=== PATIENT | female | born 1950 | race Caucasian/White ===

== ENCOUNTER 2018-03-09 13:22 | Outpatient (CLI) | payer MEDICARE, OTHER ==
[~2018-03-09] VITALS: Ht 172.7 cm; Wt 57.6 kg
[~2018-03-09 13:22] MED LIST: CIPR500T4 PO; METR500T21 PO; ONDA4TAB11 PO
[2018-03-09 13:32] VITALS: BP 120/80
[2018-03-09] MEDS ORDERED: LANS30CA PO (13:35)
[2018-03-16] MEDS ORDERED: HYDR-34 PO (12:15)
== END 2018-03-09 13:45 | disposition home or self-care (01) ==
LOC: PREOP 13:22
PROVIDERS: ATTEND Surgery
DX: Z01.818 Encounter for other preprocedural examination (principal); Z11.2 Encounter for screening for other bacterial diseases; K80.20 Calculus of gallbladder without cholecystitis without obstruction; R10.13 Epigastric pain
CPT/HCPCS: 87081

== ENCOUNTER 2018-03-16 08:07 | Day surgery (SDC) | payer MEDICARE, OTHER ==
[~2018-03-16] VITALS: Ht 172.7 cm; Wt 57.6 kg
[~2018-03-16 08:07] MED LIST changes: +LANS30CA PO
--- OUTSIDE RECORDS SUMMARY | 2018-03-16 08:11 | XMS REPORT | Continuity of Care Document ---
Author Author [facility] Organization [facility] Address Unknown Phone Unavailable Allergies Active Description Code Type Severity Reaction Onset Reported/Identified Relationship to Patient Clinical Status Yes No Known Drug Allergies [id number] Drug Allergy Unknown N/A 02/07/2018 Medications There is no data. 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 Results Test Result Range Complete blood count (CBC) with automated white blood cell (WBC) differential - 02/07/18 17:34 Blood leukocytes automated count (number/volume) 13.9 10*3/uL 4.3-11.0 Blood erythrocytes automated count (number/volume) 5.21 10*6/uL 4.35-5.85 Venous blood hemoglobin measurement (mass/volume) 14.3 g/dL 11.5-16.0 Blood hematocrit (volume fraction) 43 % 35-52 Automated erythrocyte mean corpuscular volume 83 [foz_us] 80-99 Automated erythrocyte mean corpuscular hemoglobin (mass per erythrocyte) 27 pg 25-34 Automated erythrocyte mean corpuscular hemoglobin concentration measurement ( mass/volume) 33 g/dL 32-36 Automated erythrocyte distribution width ratio 14.0 % 10.0-14.5 Automated blood platelet count (count/volume) 292 10*3/uL 130-400 Automated blood platelet mean volume measurement 9.8 [foz_us] 7.4-10.4 Automated blood neutrophils/100 leukocytes 90 % 42-75 Automated blood lymphocytes/100 leukocytes 5 % 12-44 Blood monocytes/100 leukocytes 5 % 0-12 Automated blood eosinophils/100 leukocytes 0 % 0-10 Automated blood basophils/100 leukocytes 0 % 0-10 Blood neutrophils automated count (number/volume) 12.5 10*3 1.8-7.8 Blood lymphocytes automated count (number/volume) 0.6 10*3 1.0-4.0 Blood monocytes automated count (number/volume) 0.7 10*3 0.0-1.0 Automated eosinophil count 0.0 10*3/uL 0.0-0.3 Automated blood basophil count (count/volume) 0.0 10*3/uL 0.0-0.1 Comprehensive metabolic panel - 02/07/18 17:34 Serum or plasma sodium measurement (moles/volume) 138 mmol/L 135-145 Serum or plasma potassium measurement (moles/volume) 4.4 mmol/L 3.6-5.0 Serum or plasma chloride measurement (moles/volume) 106 mmol/L 98-107 Carbon dioxide 25 mmol/L 21-32 Serum or plasma anion gap determination (moles/volume) 7 mmol/L 5-14 Serum or plasma urea nitrogen measurement (mass/volume) 11 mg/dL 7-18 Serum or plasma creatinine measurement (mass/volume) 1.00 mg/dL 0.60-1.30 Serum or plasma urea nitrogen/creatinine mass ratio 11 NRG Serum or plasma creatinine measurement with calculation of estimated glomerular filtration rate 55 NRG Serum or plasma glucose measurement (mass/volume) 114 mg/dL 70-105 Serum or plasma calcium measurement (mass/volume) 9.6 mg/dL 8.5-10.1 Serum or plasma total bilirubin measurement (mass/volume) 0.5 mg/dL 0.1-1.0 Serum or plasma alkaline phosphatase measurement (enzymatic activity/volume) 79 U/L 40-136 Serum or plasma aspartate aminotransferase measurement (enzymatic activity/ volume) 19 U/L 5-34 Serum or plasma alanine aminotransferase measurement (enzymatic activity/volume ) 13 U/L 0-55 Serum or plasma protein measurement (mass/volume) 7.4 g/dL 6.4-8.2 Serum or plasma albumin measurement (mass/volume) 4.3 g/dL 3.2-4.5 Blood manual differential performed detection - 02/07/18 17:34 Blood monocytes/100 leukocytes 2 % NRG Manual blood segmented neutrophils/100 leukocytes 89 % NRG Blood band neutrophils/100 leukocytes 0 % NRG Manual blood lymphocytes/100 leukocytes 9 % NRG Manual eosinophils/100 leukocytes in nose 0 % NRG Manual blood basophils/100 leukocytes 0 % NRG Blood erythrocyte morphology finding identification NORMAL NRG Complete urinalysis with reflex to culture - 02/07/18 18:35 Urine color determination YELLOW NRG Urine clarity determination CLEAR NRG Urine pH measurement by test strip 5 5-9 Specific gravity of urine by test strip 1.020 1.016- 1.022 Urine protein assay by test strip, semi-quantitative 1+ NEGATIVE Urine glucose detection by automated test strip NEGATIVE NEGATIVE Erythrocytes detection in urine sediment by light microscopy 1+ NEGATIVE Urine ketones detection by automated test strip NEGATIVE NEGATIVE Urine nitrite detection by test strip NEGATIVE NEGATIVE Urine total bilirubin detection by test strip NEGATIVE NEGATIVE Urine urobilinogen measurement by automated test strip (mass/volume) NORMAL NORMAL Urine leukocyte esterase detection by dipstick 1+ NEGATIVE Automated urine sediment erythrocyte count by microscopy (number/high power field) [HPF] NRG Automated urine sediment leukocyte count by microscopy (number/high power field ) [HPF] NRG Bacteria detection in urine sediment by light microscopy FEW NRG Crystals detection in urine sediment by light microscopy NONE NRG Casts detection in urine sediment by light microscopy NONE NRG Mucus detection in urine sediment by light microscopy SMALL NRG Complete urinalysis with reflex to culture YES NRG Bacterial urine culture - 02/07/18 18:35 Bacterial urine culture NG NRG Methicillin resistant Staphylococcus aureus (MRSA) screening culture - 13:41 Methicillin resistant Staphylococcus aureus (MRSA) screening culture NEG NRG Encounters ACCT No. Visit Date/Time Discharge Status Pt. Type Provider Facility Loc./Unit Complaint [id number] 02/07/2018 14:44:00 02/07/2018 20:03:00 DIS Emergency POLO MARR, [place] [facility] ER UNABLE TO BM [id number] 12/11/2013 13:35:00 12/11/2013 23:59:59 CLS Outpatient ANDERSON GUZMAN [facility] RAD ABN MAMMO [id number] 11/26/2013 09:48:00 11/26/2013 23:59:59 CLS Outpatient SVETLANA BLACKMAN MD [facility] RAD SCREENING [id number] 03/16/2018 12:15:00 PEN Preadmit CHUN MARR, BEN [facility] SDC GALLSTONES, DYSPHAGIA [id number] 03/10/2018 15:36:00 Document Registration [id number] 12/09/2014 10:07:00 Document Registration
[2018-03-16] MEDS ORDERED: ceFAZolin 1 GM/NS 50 ML IVPB IV ONE ×2 (08:15)
[2018-03-16] MEDS ORDERED: LACTATED RINGERS 1,000 ML IV PRN (08:22)
[2018-03-16 08:30] VITALS: BP 155/84
[2018-03-16] MEDS ORDERED: ceFAZolin INJECTION 1,000 MG in NS (IVPB) 50 ML IV ONE (08:30)
--- NOTE | 2018-03-16 09:07 | Progress Note-Pre Operative ---
Pre-Operative Progress Note H&P Reviewed The H&P was reviewed, patient examined and no changes noted. Date Seen by Provider: March 16, 2018 Time Seen by Provider: 09:00 Date H&P Reviewed: March 16, 2018 Time H&P Reviewed: 09:00 Pre-Operative Diagnosis: recurrent dysphagia, symptomatic cholelithiasis BEN MCCOLLUM MD March 16, 2018 9:07 am
[2018-03-16] MEDS ORDERED: ACETAMINOPHEN 325 MG TABLET/CAPLET (TYLENOL) PO PRN (09:15)
[2018-03-16] MEDS ORDERED: morphine INJ 10 MG/ML 1ML (SYR OR VIAL) IVP PRN (09:15)
[2018-03-16] MEDS ORDERED: ONDANSETRON 4 MG/2 ML (SDV) Z0FRAN IVP PRN ×2 (09:15→12:30)
[2018-03-16] MEDS ORDERED: HYDROcodone/APAP 5 MG/325 MG (LORTAB) TAB PO ONE (09:15)
[2018-03-16] MEDS ORDERED: BUP/EPI 0.5% 1:200,000 (SENSORCAINE) 30 ML VIAL ONE (10:19)
[2018-03-16] MEDS ORDERED: SEVOFLURANE (ULTANE) 15 ML INHAL SOLN ONE ×4 (10:23→12:05)
[2018-03-16] MEDS ORDERED: LACTATED RINGERS 1,000 ML IV ONE (10:23)
[2018-03-16] MEDS ORDERED: ROCURONIUM 10 MG/ML 5 ML SYRINGE IV ONE (10:23)
[2018-03-16] MEDS ORDERED: proPOfol 200 MG/20 ML (DIPRIVAN) VIAL IV ONE (10:23)
[2018-03-16] MEDS ORDERED: LIDOCAINE PF 2% 5 ML (XYLOCAINE) VIAL ONE (10:23)
[2018-03-16] MEDS ORDERED: fentaNYL INJECTION 100 MCG/2 ML AMP ONE (10:24)
[2018-03-16] MEDS ORDERED: MIDAZOLAM 2 MG/2 ML (VERSED) VIAL ONE (10:24)
[2018-03-16] MEDS ORDERED: NEOSTIGMINE 1 MG/ML 5 ML SYRINGE ONE (11:47)
[2018-03-16] MEDS ORDERED: GLYCOPYRROLATE 0.2 MG/ML (ROBINUL) 2 ML VIAL ONE (11:47)
--- NOTE | 2018-03-16 12:13 | Progress Note-Post Operative ---
Post-Operative Progess Note Surgeon (s)/Pharmacy General Manager (s) Surgeon BEN MCCOLLUM MD Pharmacy General Manager: ange metcalf [employer] TECHNICIAN Pre-Operative Diagnosis recurrent dysphagia, symptomatic cholelithiasis Post-Operative Diagnosis multiple large gallstones, distal esophageal stricture, small HH(2cm), mild-mod gastritis. Procedure & Operative Findings Date of Procedure 03/16/18 Procedure Performed/Findings laparoscopic cholecystectomy. EGD with bx and balloon dilatation. Anesthesia Type GET Estimated Blood Loss Estimated blood loss (mL): minimal Specimens/Packing Specimens Removed gallbladder, GE jxn, antrum BEN MCCOLLUM MD March 16, 2018 12:13 pm
[2018-03-16] MEDS ORDERED: HYDR-34 PO (12:15)
--- NOTE | 2018-03-16 12:17 | Discharge Inst-Surgical ---
D/C Lap Instructions-CHUN New, Converted, or Re-Newed RX: RX on Chart Follow Up Appt in 2 weeks Activity as tolerated No driving for 24 hours No driving while on pain medications Incentive Spirometry use every 2 hours while awake Regular Diet Symptoms to Report: Fever over 101 degree F, Nausea/Vomiting Infection Signs and Symptoms to report: Increased redness, Foul odor of wound, Increased drainage Bathing instructions: May shower Operative Area Clean/Dry; Keep incision clean/dry If any problems/questions: Contact your physician or go to Emergency Room BEN MCCOLLUM MD March 16, 2018 12:17 pm
--- NOTE | 2018-03-16 12:29 | Anesthesia-General Post-Op ---
General Patient Condition Mental Status/LOC: Same as Preop Cardiovascular: Satisfactory Nausea/Vomiting: Absent Respiratory: Satisfactory Pain: Controlled Complications: Absent Post Op Complications Complications None Follow Up Care/Instructions Patient Instructions None needed. Anesthesia/Patient Condition Patient Condition Patient is doing well, no complaints, stable vital signs, no apparent adverse anesthesia problems. No complications reported per nursing. MICHELINE STEWARD CRNA March 16, 2018 12:29
[2018-03-16] MEDS ORDERED: MEPERIDINE (DEMEROL) INJ 50 MG/ML IVP PRN (12:30)
[2018-03-16] MEDS ORDERED: fentaNYL INJECTION 100 MCG/2 ML AMP IVP PRN (12:30)
[2018-03-16 13:10] VITALS: BP 121/57
[2018-03-16 13:40] VITALS: BP 117/64
[2018-03-16 14:10] VITALS: BP 111/58
[2018-03-16 14:25] VITALS: BP 111/58
--- NOTE | 2018-03-16 17:38 | OPERATIVE REPORT ---
DATE OF SERVICE: 03/16/2018 ATTENDING PRIMARY CARE PHYSICIAN: Dr. Cox. PREOPERATIVE DIAGNOSES: Chronic calculous cholecystitis, recurrent symptomatic dysphagia and history of esophageal stricture. POSTOPERATIVE DIAGNOSES: Multiple large gallstones, dilated gallbladder, distal esophageal stricture, reflux esophagitis class B, small hiatal hernia approximately 2 cm in size, mild to moderate gastritis. PROCEDURES: Laparoscopic cholecystectomy, EGD with biopsy and balloon dilatation. SURGEON: Ben Mccollum MD PROGRAM THERAPIST: Paul Simon APRN ANESTHESIA: General endotracheal. ESTIMATED BLOOD LOSS: Minimal. FINDINGS: Multiple large gallstones with mild to moderate gallbladder wall thickening, reflux esophagitis class C, distal esophageal stricture, small hiatal hernia 2 cm in size, mild to moderate gastritis. DISPOSITION: The patient tolerated the procedure well. INDICATIONS: The patient is a 67-year-old female, who has had a number of gastrointestinal issues in the past. She had reported episodes of diarrhea and constipation for many years in the past. She did develop pain in the left lower abdominal quadrant. She was found to have a mild sigmoid diverticulitis and was placed on antibiotics and this resolved on its own. Since that time, she has been trying to incorporate healthy diets with one in high in fiber and states at this time, her stools are softer in consistency. She also has had a history of dysphagia and has undergone 3 balloon dilatations of a distal esophageal stricture in the past. Her last one was approximately 7 years ago. She has had recurrent dysphagia with solid foods. She also was found to have gallstones. She reports that she has had the development and worsening of pain in the right upper abdominal quadrant as well as a fullness sensation with nausea; however, no vomiting usually after eating meals. DESCRIPTION OF PROCEDURE: The patient was brought to the operating room, laid supine on the table. After adequate IV pain and sedative medications and general endotracheal intubation, the abdomen was prepped and draped in standard surgical fashion. A 0.5% Marcaine with epinephrine was then used to anesthetize the overlying skin in the left upper abdominal quadrant and a small transverse skin incision made using a 15 blade. An 0 silk suture was applied to the medial aspect of the incision for retraction and a Veress needle inserted with a low opening pressure of 0 mmHg and the abdomen was then insufflated to 15 mmHg pressure. The Veress needle removed and a 5 mm Xcel trocar placed followed by a 5 mm 45 degree angle laparoscope visualizing the peritoneal cavity. A 4-quadrant abdominal exploration was performed. There were pelvic omental adhesions from the abdominal wall from a previous lower laparotomy incision. There was a dilated gallbladder with mild to moderate gallbladder wall thickening. The remainder of the stomach, small bowel and liver appeared normal. Under direct visualization, a supraumbilical 10 mm port was placed at the skin and peritoneal lining were anesthetized using 0.5% Marcaine with epinephrine and a transverse skin incision made using 15 blade. In a similar manner, a right upper abdominal quadrant 5 mm port was placed. The patient was then placed in reverse Trendelenburg position as well as plane right side up, left side down. The fundus of the gallbladder was then retracted anteriorly and superiorly. The hepatoduodenal ligament was then opened using electrocautery and hook instrument as well as blunt dissection. The entire critical view of safety was identified including the triangle of Calot as well as the cystic duct and artery as the only two structures going into the gallbladder as well as the cystic plate behind the proximal gallbladder. A timeout was then taken. The cystic duct and artery were then clipped proximally, distally and cut with EndoShears. The gallbladder was then dissected off the liver bed using electrocautery on the hook instrument with visualization of good hemostasis as well as no leaking ducts of Luschka. The gallbladder was removed through the 10 mm port site using an EndoCatch bag. The abdomen was then desufflated and the remaining ports removed. The fascia and peritoneum to the 10 mm port site, which had to be widened to accommodate the gallstones was then closed using 0 Vicryl running suture. All skin incisions were then closed using 4-0 Monocryl running subcuticular sutures. Wounds were then cleaned and covered with Dermabond. The patient tolerated this portion of the procedure well. We will start IV and oral pain medication as well as a clear liquid diet. Once she is tolerating clears, has good pain control with oral pain medications, ambulating well, we will discharge her home. She will be instructed to do no heavy lifting or exertion for the next two weeks. Under the same anesthesia, we then proceeded with the EGD portion of the procedure. The endoscope was placed in the mouth, visualizing the pharynx and hypopharyngeal region. The endoscope was then gently intubated. The esophageal opening and esophagus insufflated. The endoscope was then advanced to the first, second and third portion of the esophagus at the level of the GE junction, a reflux esophagitis class C identified with a distal esophageal stricture identified. Biopsies were taken with forceps with visualization of good hemostasis. The endoscope was then advanced through the stricture and the endoscope retroflexed, visualizing a small hiatal hernia approximately 2 cm in size as well as the stricture identified as well. There was a mild to moderate gastritis. There were no formal ulcers, polyps or any neoplasms identified. A biopsy was taken of the stomach antrum for H. pylori with forceps with visualization of good hemostasis. The endoscope was then advanced to the pylorus and the first and second portion of the duodenum, which appeared normal with no distal obstructions. We then proceeded with the balloon dilatation of distal esophageal stricture. A CRE fixed guidewire balloon was placed in the stomach and pulled back to the area of the stricture. The balloon was then insufflated to 3 atmospheres of pressure 18 mm in diameter with mild resistance. We then proceeded to 4.5 atmospheres of pressure or 19 mm with again mild resistance. We then proceeded to 6 atmospheres of pressure or 20 mm in diameter with mild to moderate resistance and left this in place for approximately 60 seconds. The balloon was then desufflated and removed. There were no mucosal tears identified as well as good hemostasis. Endoscope was then slowly withdrawn while taking a second look and suctioning of residual air with no additional findings. The patient tolerated this portion of the procedure well. We will recommend continued medical management with the necessary lifestyle and diet accommodation including small and more frequent meals, avoidance of eating at night as well as head elevation while lying supine. She also needs to avoid caffeinated beverages, spicy, greasy and acidic foods. Job ID: [id number] DocumentID: [id number] Dictated Date: 03/16/2018 12:29:54 Lpn Private Duty Date: 03/16/2018 17:37:36 Dictated By: BEN MCCOLLUM MD
== END 2018-03-16 14:25 | disposition home or self-care (01) ==
LOC: SDC 08:07
PROVIDERS: ATTEND Surgery
DX: K80.10 Calculus of gallbladder with chronic cholecystitis without obstruction (principal); K22.2 Esophageal obstruction; K21.0 Gastro-esophageal reflux disease with esophagitis; K44.9 Diaphragmatic hernia without obstruction or gangrene; K29.70 Gastritis, unspecified, without bleeding
CPT/HCPCS: 88304; 88305; 94664

== ENCOUNTER 2021-02-24 05:28 | Outpatient (RCR) | payer MEDICARE, OTHER ==
[~2021-02-24] VITALS: Ht 170.2 cm; Wt 64.9 kg
[~2021-02-24 05:28] MED LIST changes: -CIPR500T4 PO; +CIPR500T5 PO; +HYDR-34 PO; +METR-145 PO; -METR500T21 PO; +PANT40TA52 PO
== END 2021-02-24 09:41 | disposition home or self-care (01) ==
LOC: PREOP 05:28
PROVIDERS: ATTEND Surgery
DX: Z01.812 Encounter for preprocedural laboratory examination (principal); Z12.11 Encounter for screening for malignant neoplasm of colon; R13.10 Dysphagia, unspecified; Z20.822 Contact with and (suspected) exposure to COVID-19
CPT/HCPCS: 87635

== ENCOUNTER 2021-02-25 12:43 | Day surgery (SDC) | payer MEDICARE, OTHER ==
[~2021-02-25] VITALS: Ht 170.2 cm; Wt 64.9 kg
[2021-02-25] VITALS (16 sets, daily range): BP systolic 90–162; BP diastolic 54–99
[~2021-02-25 12:43] MED LIST changes: +NS IV 500 ML 500 ML ONE
[2021-02-25] MEDS ORDERED: LIDOCAINE JELLY 2% 6 ML SYRINGE MM PRN (13:00)
[2021-02-25] MEDS ORDERED: NS IV 500 ML 500 ML IV PRN (13:00)
[2021-02-25] MEDS ORDERED: fentaNYL INJ 100 MCG/2 ML AMP IVP ONE (13:00)
[2021-02-25] MEDS ORDERED: HURRICAINE EXT TUBE (BENZOCAINE) XX PRN (13:00)
[2021-02-25] MEDS ORDERED: MIDAZOLAM 5 MG/5 ML (VERSED) VIAL IV ONE (13:00)
--- NOTE | 2021-02-25 13:26 | Conscious Sedation/ASA ---
Conscious Sedation Pre-Proced Time 13:00 ASA Score 2 For ASA 3 and 4: Consider anesthesia and medical clearance. Also, for patients with a history of failed moderate sedation consider anesthesia. Airway Lungs Heart ASA score ASA 1: a normal healthy patient ASA 2: a patient with a mild systemic disease (mid diabetes, controlled hypertension, obesity ASA 3: a patient with a severe systemic disease that limits activity (angina, COPD, prior Myocardial infarction) ASA 4: a patient with an incapacitating disease that is a constant threat to life (CHF, renal failure) ASA 5: a moribund patient not expected to survive 24 hrs. (ruptured aneurysm) ASA 6: a declared brain- patient whose organs are being harvested. For emergent operations, add the letter E after the classification Mallampati Classification Grade 2 Sedation Plan Analgesia, Amnesia, Plan communicated to team members, Discussed options with patient/fam, Discussed risks with patient/fam The patient is an appropriate candidate to undergo the planned procedure, sedation, and anesthesia. The patient immediately re-assessed prior to indication. BEN MCCOLLUM MD February 25, 2021 13:26
--- NOTE | 2021-02-25 13:26 | Progress Note-Pre Operative ---
Pre-Operative Progress Note H&P Reviewed The H&P was reviewed, patient examined and no changes noted. Date Seen by Provider: February 25, 2021 Time Seen by Provider: 13:00 Date H&P Reviewed: February 25, 2021 Time H&P Reviewed: 13:00 Pre-Operative Diagnosis: dysphagia, GERD, screening BEN MCCOLLUM MD February 25, 2021 13:26
--- NOTE | 2021-02-25 13:28 | Discharge Inst-Surgical ---
D/C Lap Instructions-CHUN Follow Up Activity as tolerated High Fiber Diet 25g or more per day Avoid Alcohol, Caffeine, Spicy [place] and Acid foods. Drink 64 fluid oz or more of fluids per day. Symptoms to Report: Fever over 101 degree F, Nausea/Vomiting If any problems/questions: Contact your physician or go to Emergency Room BEN MCCOLLUM MD February 25, 2021 13:28
[2021-02-25] MEDS ORDERED: HYDROcodone/APAP 5 MG/325 MG (LORTAB) TAB PO PRN (13:30)
[2021-02-25] MEDS ORDERED: ACETAMINOPHEN 325 MG TABLET PO PRN (13:30)
[2021-02-25] MEDS ORDERED: morphine INJ 10 MG/ML 1ML (SYR OR VIAL) IVP PRN ×2 (13:30)
[2021-02-25] MEDS ORDERED: ONDANSETRON 4 MG/2 ML (SDV) Z0FRAN IVP PRN (13:30)
[2021-02-25] MEDS ORDERED: fentaNYL INJ 100 MCG/2 ML AMP ONE ×2 (14:12→14:33)
[2021-02-25] MEDS ORDERED: MIDAZOLAM 5 MG/5 ML (VERSED) VIAL ONE ×4 (14:12→14:33)
[2021-02-25] MEDS ORDERED: LIDOCAINE JELLY 2% 6 ML SYRINGE ONE (14:12)
[2021-02-25] MEDS ORDERED: HURRICAINE EXT TUBE (BENZOCAINE) ONE (14:13)
--- NOTE | 2021-02-25 16:02 | Progress Note-Post Operative ---
Post-Operative Progess Note Surgeon (s)/Drainage Inspector (s) Surgeon BEN MCCOLLUM MD Drainage Inspector: none Pre-Operative Diagnosis dysphagia, GERD, screening Post-Operative Diagnosis reflux esophagitis(stage 2-3), distal esophageal stricture, small-mod HH(2.5cm), mod gastritis. mild chronic stage 1 ext and int hemorrhoids, mild sigmoid diverticulosis. Procedure & Operative Findings Date of Procedure 02/25/21 Procedure Performed/Findings EGD with bx and balloon dilatation. colonoscopy. Anesthesia Type cs Estimated Blood Loss Estimated blood loss (mL): minimal Specimens/Packing Specimens Removed ge jxn, antrum BEN MCCOLLUM MD February 25, 2021 16:02
--- NOTE | 2021-02-25 22:49 | OPERATIVE REPORT ---
DATE OF SERVICE: 02/25/2021 ATTENDING PRIMARY CARE PHYSICIAN: Amanda Cox MD PREOPERATIVE DIAGNOSES: Dysphagia, gastroesophageal reflux disease, history of colon polyp. POSTOPERATIVE DIAGNOSES: Reflux esophagitis stage II, distal esophageal stricture, small to moderate size hiatal hernia approximately 3 cm in size, moderate gastritis. Chronic stage I external and internal hemorrhoids, mild sigmoid diverticulosis. PROCEDURE: EGD with biopsy and balloon dilatation, and colonoscopy. SURGEON: Ben Mccollum MD. ANESTHESIA: Conscious sedation. ESTIMATED BLOOD LOSS: Minimal. FINDINGS: Reflux esophagitis stage II, distal esophageal stricture, small to moderate size hiatal hernia approximately 3 cm in size, moderate gastritis. Chronic stage I external and internal hemorrhoids, mild sigmoid diverticulosis. DISPOSITION: The patient tolerated the procedure well. INDICATIONS: The patient is a 70-year-old female known to us. She has had multiple gastrointestinal issues in the past and she has undergone previous EGD as well as balloon dilatations for esophageal strictures. She has had reoccurrence of dysphagia for the past six months and she is also in need of a screening colonoscopy, her last one was 12 years ago and she does have a history of polyps, which were biopsied and found to be a benign. She does not report any red blood per rectum nor any dark tarry stools. She also does not report any family history of colon cancer. DESCRIPTION OF PROCEDURE: The patient was brought to the endoscopy suite, laid in the left lateral decubitus position. After adequate IV pain and sedative medications and conscious sedation anesthesia, the mouthpiece was applied. The endoscope was placed in the mouth, visualizing the pharynx and hypopharyngeal region. Vocal cords, epiglottis and vallecula identified and appeared to be normal. The endoscope was then gently abated, esophageal opening and esophagus insufflated. The endoscope was then advanced to the first, second and third portion of the esophagus. At the level of the GE junction, reflux esophagitis between stage II and III identified with a distal esophageal stricture also identified. The GE junction was also intrathoracic consistent with a hiatal hernia. The endoscope was then advanced in the stomach and endoscope retroflexed, visualizing a moderate size hiatal hernia approximately 3 cm in size. There was a moderate gastritis more towards the stomach antrum. No formal ulcerations, polyps, or any neoplasms. Pylorus and duodenum appeared normal with no distal obstructions. We then proceeded with balloon dilatation of the stricture and the balloon was placed in the stomach and pulled back to the area of the stricture. We first proceeded to 2 atmospheres of pressure with mild resistance. We then slowly went to 3, then 4 atmospheres of pressure where there was a significant amount of resistance and we left this in place for approximately 60 seconds. The luminal diameter was approximately 19 mm. The balloon was then desufflated and removed with visualization of good hemostasis as well as no mucosal tears. The endoscope was slowly withdrawn while taking a second look and suctioning of residual air with no additional findings. We then proceeded with the colonoscopy portion of the procedure. Digital rectal examination was performed. Mild chronic stage I external and internal hemorrhoids were identified, which were not actively edematous nor inflamed and no bleeding. Normal sphincter tone was felt and there were no palpable masses. The endoscope was then intubated and anus and rectum gently insufflated. The endoscope was then advanced to the valves of [place] of the rectum with no polyps or any neoplasms identified. Through the sigmoid colon, mild sigmoid diverticulosis identified. The endoscope was then advanced to the remainder of the descending, transverse and ascending colon to the cecum. These segments were normal. There were no polyps or any neoplasms identified throughout the colon or rectum. Endoscope was then slowly withdrawn while taking a second look and suctioning of residual air with no additional findings. The patient tolerated the procedure well. We will recommend the necessary lifestyle and diet accommodation including small and more frequent meals, avoidance of eating at night as well as head elevation while lying supine. We will also recommend that she continue to take Protonix daily as well as Carafate on a p.r.n. basis. In approximately 6 to 8 weeks, we will recommend a followup balloon dilatation in hopes of achieving a dilatation to 20 mm. We will also recommend an incorporation of high fiber diet with fiber supplement, which should equate or exceed 25 mg daily as well as significant amounts of water to promote soft stools on a daily basis. If she is asymptomatic, she does not need another colonoscopy for another 10 years. Job ID: [id number] DocumentID: [id number] Dictated Date: 02/25/2021 15:38:56 Leasing Coordinator Date: 02/25/2021 22:47:58 Dictated By: BEN MCCOLLUM MD
== END 2021-02-25 16:15 | disposition home or self-care (01) ==
LOC: ENDO 12:43
PROVIDERS: ATTEND Surgery
DX: Z12.11 Encounter for screening for malignant neoplasm of colon (principal); K21.00 Gastro-esophageal reflux disease with esophagitis, without bleeding; K29.50 Unspecified chronic gastritis without bleeding; K22.2 Esophageal obstruction; K44.9 Diaphragmatic hernia without obstruction or gangrene; K29.70 Gastritis, unspecified, without bleeding; K64.4 Residual hemorrhoidal skin tags; K64.0 First degree hemorrhoids; K57.30 Diverticulosis of large intestine without perforation or abscess without bleeding; Z86.010 Personal history of colon polyps; Z79.899 Other long term (current) drug therapy; Z90.49 Acquired absence of other specified parts of digestive tract; Z90.89 Acquired absence of other organs; Z82.49 Family history of ischemic heart disease and other diseases of the circulatory system
CPT/HCPCS: 43239; 43249; G0105

== ENCOUNTER 2021-04-27 05:32 | Outpatient (RCR) | payer MEDICARE, OTHER ==
[~2021-04-27] VITALS: Ht 170.2 cm; Wt 64.9 kg
[~2021-04-27 05:32] MED LIST changes: +CARB10DR5 OP; -NS IV 500 ML 500 ML ONE; +PRED5DRO24 OP
== END 2021-04-27 11:09 | disposition home or self-care (01) ==
LOC: PREOP 05:32
PROVIDERS: ATTEND Surgery
DX: Z01.812 Encounter for preprocedural laboratory examination (principal); R13.10 Dysphagia, unspecified; Z20.822 Contact with and (suspected) exposure to COVID-19
CPT/HCPCS: 87635

== ENCOUNTER 2021-04-29 11:22 | Day surgery (SDC) | payer MEDICARE, OTHER ==
[~2021-04-29] VITALS: Ht 170.2 cm; Wt 64.9 kg
[2021-04-29] VITALS (12 sets, daily range): BP systolic 127–175; BP diastolic 60–95
[2021-04-29] MEDS ORDERED: NS IV 500 ML 500 ML ONE (11:29)
--- NOTE | 2021-04-29 11:56 | Conscious Sedation/ASA ---
Conscious Sedation Pre-Proced Time 11:30 ASA Score 2 For ASA 3 and 4: Consider anesthesia and medical clearance. Also, for patients with a history of failed moderate sedation consider anesthesia. Airway Lungs Heart ASA score ASA 1: a normal healthy patient ASA 2: a patient with a mild systemic disease (mid diabetes, controlled hypertension, obesity ASA 3: a patient with a severe systemic disease that limits activity (angina, COPD, prior Myocardial infarction) ASA 4: a patient with an incapacitating disease that is a constant threat to life (CHF, renal failure) ASA 5: a moribund patient not expected to survive 24 hrs. (ruptured aneurysm) ASA 6: a declared brain- patient whose organs are being harvested. For emergent operations, add the letter E after the classification Mallampati Classification Grade 2 Sedation Plan Analgesia, Amnesia, Plan communicated to team members, Discussed options with patient/fam, Discussed risks with patient/fam The patient is an appropriate candidate to undergo the planned procedure, sedation, and anesthesia. The patient immediately re-assessed prior to indication. BEN MCCOLLUM MD Apr 29, 2021 11:56
--- NOTE | 2021-04-29 11:57 | Progress Note-Pre Operative ---
Pre-Operative Progress Note H&P Reviewed The H&P was reviewed, patient examined and no changes noted. Date Seen by Provider: Apr 29, 2021 Time Seen by Provider: 11:30 Date H&P Reviewed: Apr 29, 2021 Time H&P Reviewed: 11:30 Pre-Operative Diagnosis: GERD, dysphagia BEN MCCOLLUM MD Apr 29, 2021 11:57
--- NOTE | 2021-04-29 11:58 | Discharge Inst-Surgical ---
D/C Lap Instructions-CHUN Follow Up Activity as tolerated High Fiber Diet 25g or more per day Avoid Alcohol, Caffeine, Spicy [place] and Acid foods. Drink 64 fluid oz or more of fluids per day. Symptoms to Report: Fever over 101 degree F, Nausea/Vomiting If any problems/questions: Contact your physician or go to Emergency Room BEN MCCOLLUM MD Apr 29, 2021 11:58
[2021-04-29] MEDS ORDERED: fentaNYL INJ 100 MCG/2 ML AMP IVP ONE (12:00)
[2021-04-29] MEDS ORDERED: LIDOCAINE JELLY 2% 6 ML SYRINGE MM PRN (12:00)
[2021-04-29] MEDS ORDERED: HYDROcodone/APAP 5 MG/325 MG (LORTAB) TAB PO PRN (12:00)
[2021-04-29] MEDS ORDERED: MIDAZOLAM 5 MG/5 ML (VERSED) VIAL IV ONE (12:00)
[2021-04-29] MEDS ORDERED: ACETAMINOPHEN 325 MG TABLET PO PRN (12:00)
[2021-04-29] MEDS ORDERED: ONDANSETRON 4 MG/2 ML (SDV) Z0FRAN IVP PRN (12:00)
[2021-04-29] MEDS ORDERED: morphine INJ 10 MG/ML 1ML (SYR OR VIAL) IVP PRN ×2 (12:00)
[2021-04-29] MEDS ORDERED: NS IV 500 ML 500 ML IV PRN (12:00)
[2021-04-29] MEDS ORDERED: HURRICAINE EXT TUBE (BENZOCAINE) XX PRN (12:00)
--- NOTE | 2021-04-29 13:22 | Progress Note-Post Operative ---
Post-Operative Progess Note Surgeon (s)/Machine Stuffer (s) Surgeon BEN MCCOLLUM MD Machine Stuffer: none Pre-Operative Diagnosis GERD, dysphagia Post-Operative Diagnosis reflux esophagitis(stage 2-3), distal esophageal stricture, small-mod HH(3cm), mild-mod gastritis. Procedure & Operative Findings Date of Procedure 04/29/21 Procedure Performed/Findings EGD with bx and balloon dilatation. Anesthesia Type cs Estimated Blood Loss Estimated blood loss (mL): minimal Specimens/Packing Specimens Removed ge jxn, antrum BEN MCCOLLUM MD Apr 29, 2021 13:22
--- NOTE | 2021-04-29 19:12 | OPERATIVE REPORT ---
DATE OF SERVICE: 04/29/2021 ATTENDING PRIMARY CARE PHYSICIAN: Amanda Cox MD PREOPERATIVE DIAGNOSES: Gastroesophageal reflux disease, dysphagia. POSTOPERATIVE DIAGNOSES: Reflux esophagitis between stage II and III with a distal esophageal stricture. A small to moderate sized type 1 hiatal hernia approximately 3 cm in size, mild to moderate gastritis. No distal obstructions. PROCEDURE: EGD with biopsy and balloon dilatation. SURGEON: Ben Mccollum MD. ANESTHESIA: Conscious sedation. ESTIMATED BLOOD LOSS: Minimal. FINDINGS: Reflux esophagitis between stage II and III with a distal esophageal stricture. A small to moderate sized type 1 hiatal hernia approximately 3 cm in size, mild to moderate gastritis. No distal obstructions. DISPOSITION: The patient tolerated the procedure well. INDICATIONS: The patient is a 70-year-old female known to us. She has had a history of gastroesophageal reflux disease and esophageal strictures requiring balloon dilatation in the past. She reports that she is doing well and is taking her Protonix; however, she has had some recurrence of dysphagia, but also reports after eating meals, she will have crampy abdominal pain and abdominal distention, which may indicate a gallbladder etiology as well. DESCRIPTION OF PROCEDURE: The patient was brought to the endoscopy suite, laid in the left lateral decubitus position. After adequate IV pain and sedative medications and conscious sedation anesthesia, the mouthpiece was applied. The endoscope was placed in the mouth, visualizing the pharynx and hypopharyngeal region. Vocal cords, epiglottis and vallecula identified and appeared to be normal. The endoscope was then gently intubated into the esophageal opening and esophagus insufflated. The endoscope was then advanced through the first, second and third portion of esophagus at the level of the GE junction, a reflux esophagitis between stage II and III identified. There was also a distal esophageal stricture identified. A biopsy was taken with forceps with visualization of good hemostasis. The endoscope was then advanced in the stomach and endoscope retroflexed, visualizing a small to moderate sized type 1 hiatal hernia approximately 3 cm in size. There was a mild to moderate gastritis. No formal ulcerations, polyps, or any neoplasms. A biopsy was taken of the antrum to rule out H. pylori with visualization of good hemostasis. The endoscope was then advanced to the pylorus and the first and second portion of the duodenum, which appeared normal with no distal obstructions. The balloon was then placed in the stomach and pulled back to the area of stricture and then we proceeded with gradual stepwise fashion of dilatation to 2 from 2, 4 then 5 atmospheres of pressure or 19 mmHg with moderate resistance and left this in place for approximately 60 seconds. The balloon was then desufflated and removed with visualization of good hemostasis as well as no mucosal tears. The endoscope was then slowly withdrawn while taking a second look and suctioning of residual air with no additional findings. The patient tolerated the procedure well. We will recommend the necessary lifestyle and diet accommodation including small and more frequent meals, avoidance of eating at night as well as head elevation while lying supine. We will also recommend continuation of Protonix daily. We will also proceed with outpatient workup for potential gallbladder etiology with an ultrasound and if this does not show any abnormalities, then a HIDA scan to look for the possibility of biliary dyskinesia or chronic acalculous cholecystitis. Job ID: [id number] DocumentID: [id number] Dictated Date: 04/29/2021 13:15:35 [employer] Date: 04/29/2021 19:11:25 Dictated By: BEN MCCOLLUM MD
== END 2021-04-29 14:10 | disposition home or self-care (01) ==
LOC: ENDO 11:22
PROVIDERS: ATTEND Surgery
DX: K21.00 Gastro-esophageal reflux disease with esophagitis, without bleeding (principal); K22.2 Esophageal obstruction; K44.9 Diaphragmatic hernia without obstruction or gangrene; K29.70 Gastritis, unspecified, without bleeding; Z79.899 Other long term (current) drug therapy; Z90.49 Acquired absence of other specified parts of digestive tract; Z98.890 Other specified postprocedural states
CPT/HCPCS: 88305

== ENCOUNTER 2023-02-24 05:41 | Outpatient (CLI) | payer MEDICARE, OTHER ==
[~2023-02-24] VITALS: Ht 170.1 cm; Wt 65.9 kg
[2023-02-28] MEDS ORDERED: ESTR42.511 VG (12:35)
== END 2023-02-28 12:50 | disposition home or self-care (01) ==
LOC: PREOP 05:41
PROVIDERS: ATTEND Specialist
DX: Z01.818 Encounter for other preprocedural examination (principal)

== ENCOUNTER 2023-03-04 08:22 | Day surgery (SDC) | payer MEDICARE, OTHER ==
[~2023-03-04] VITALS: Ht 170.1 cm; Wt 65.9 kg
[~2023-03-04 08:22] MED LIST changes: +ESTR42.511 VG
[2023-03-04] MEDS ORDERED: MIDAZOLAM 2 MG/2 ML (VERSED) VIAL ONE (08:25)
[2023-03-04] MEDS ORDERED: TIMOLOL 0.5% (CATARACTS) 0.3 ML BTL OU PRN (08:30)
[2023-03-04] MEDS ORDERED: POVIDONE (BETADINE) OPHTH SOLN 5% 30 ML OP ONE (08:30)
[2023-03-04] MEDS ORDERED: MOXIFLOXACIN OPHTH SOLN 5 MG/ML 0.3 ML SYRINGE OP ONE (08:30)
[2023-03-04] MEDS: TETRACAINE 0.5% OPHTH SOLN 4 ML BTL (SINGLE DOSE ONLY) OU PRN ×4 (08:35→08:51)
--- NOTE | 2023-03-04 08:40 | Ophthalmologist Pre-Op Note ---
Pre-Operative Progress Note H&P Reviewed The H&P was reviewed, patient examined and no changes noted. Date H&P Reviewed: March 04, 2023 Time H&P Reviewed: 08:39 Pre-Op Dx Cataract, Right Eye MEME WONG MD March 04, 2023 08:39
[2023-03-04] MEDS: TROPICAMIDE 1% OPH SOLN (MYDRIACYL) 15 ML BTL OP SCH ×3 (08:42→08:51)
[2023-03-04] MEDS: PHENYLEPHRINE 10% OPHTH (NEO-SYN) 5 ML BTL OU SCH ×3 (08:42→08:51)
[2023-03-04 08:43] VITALS: BP 163/80
--- NOTE | 2023-03-04 09:13 | Ophthalmology Operative Report ---
Cataract removal/placement IOL PREOPERATIVE DIAGNOSIS: Cataract Right Eye POSTOPERATIVE DIAGNOSIS: Cataract Right Eye PROCEDURE: Cataract removal and placement of posterior chamber implant, right eye SURGEON: Juan Wong ANESTHESIA: Topical with sedation COMPLICATIONS: None ESTIMATED BLOOD LOSS: Minimal DESCRIPTION OF PROCEDURE: After proper informed consent was obtained, the patient, a 72 female, was taken to the Operating Room and the right eye was anesthetized with tetracaine. The right eye was then prepped and draped in the usual manner. A wire lid speculum was placed. A paracentesis was made at the left hand position. Preservative free lidocaine was injected into the anterior chamber followed by viscoelastic. A clear corneal incision was made in the temporal position. A capsulorrhexis was preformed and the central nuclear and cortical material were removed. The posterior capsule was polished and Femi 22.5 AU00T0 IOL was placed into the capsular bag. The residual viscoelastic was aspirated and balanced saline solution was injected into the anterior chamber. Moxifloxacin was injected into the anterior chamber. The wound was checked and found to be water tight. The patient tolerated the procedure well without complications. JUAN WONG MD March 04, 2023 09:13
[2023-03-04 09:25] VITALS: BP 148/82
[2023-03-04] MEDS ORDERED: acetaZOLAMIDE ER 500 MG CAP (DIAMOX SEQUELS) PO ONE (11:00)
--- NOTE | 2023-03-04 12:23 | Anesthesia-General Post-Op ---
MAC Patient Condition Mental Status/LOC: Same as Preop Cardiovascular: Satisfactory Nausea/Vomiting: Absent Respiratory: Satisfactory Pain: Controlled Complications: Absent Post Op Complications Complications None Follow Up Care/Instructions Patient Instructions None needed. Anesthesiology Discharge Order Discharge Order Patient is doing well, no complaints, stable vital signs, no apparent adverse anesthesia problems. No complications reported per nursing. MICHELINE STEWARD CRNA March 04, 2023 12:23
== END 2023-03-04 09:28 | disposition home or self-care (01) ==
LOC: SDC 08:22
PROVIDERS: ATTEND Specialist
DX: H25.9 Unspecified age-related cataract (principal)
CPT/HCPCS: 66984; V2632

== ENCOUNTER 2023-03-15 05:33 | Outpatient (CLI) | payer MEDICARE ==
[~2023-03-15] VITALS: Ht 172.7 cm; Wt 65.9 kg
== END 2023-03-15 14:36 | disposition home or self-care (01) ==
LOC: PREOP 05:33
PROVIDERS: ATTEND Specialist
DX: Z01.818 Encounter for other preprocedural examination (principal)

== ENCOUNTER 2023-03-18 07:16 | Day surgery (SDC) | payer MEDICARE, OTHER ==
[~2023-03-18] VITALS: Ht 172.7 cm; Wt 65.9 kg
[2023-03-18 07:00] VITALS: BP 174/93
[2023-03-18] MEDS ORDERED: POVIDONE (BETADINE) OPHTH SOLN 5% 30 ML OP ONE (07:30)
[2023-03-18] MEDS ORDERED: MOXIFLOXACIN OPHTH SOLN 5 MG/ML 0.3 ML SYRINGE OP ONE (07:30)
[2023-03-18] MEDS ORDERED: TIMOLOL 0.5% (CATARACTS) 0.3 ML BTL OU PRN (07:30)
[2023-03-18] MEDS ORDERED: TETRACAINE 0.5% OPHTH SOLN 4 ML BTL (SINGLE DOSE ONLY) OS ONE (07:47)
[2023-03-18] MEDS: PHENYLEPHRINE 10% OPHTH (NEO-SYN) 5 ML BTL OU SCH ×3 (07:56→08:07)
[2023-03-18] MEDS: TROPICAMIDE 1% OPH SOLN (MYDRIACYL) 15 ML BTL OP SCH ×3 (07:56→08:07)
[2023-03-18] MEDS ORDERED: MIDAZOLAM 2 MG/2 ML (VERSED) VIAL ONE (08:14)
--- NOTE | 2023-03-18 08:29 | Ophthalmologist Pre-Op Note ---
Pre-Operative Progress Note H&P Reviewed The H&P was reviewed, patient examined and no changes noted. Date H&P Reviewed: Mar 18, 2023 Time H&P Reviewed: 08:29 Pre-Op Dx Cataract, Left Eye MEME WONG MD Mar 18, 2023 08:29
--- NOTE | 2023-03-18 08:47 | Ophthalmology Operative Report ---
Cataract removal/placement IOL PREOPERATIVE DIAGNOSIS: Cataract Left Eye POSTOPERATIVE DIAGNOSIS: Cataract Left Eye PROCEDURE: Cataract removal and placement of posterior chamber implant, left eye SURGEON: Juan Wong ANESTHESIA: Topical with sedation COMPLICATIONS: None ESTIMATED BLOOD LOSS: Minimal DESCRIPTION OF PROCEDURE: After proper informed consent was obtained, the patient, a 72 female, was taken to the Operating Room and the left eye was anesthetized with tetracaine. The left eye was then prepped and draped in the usual manner. A wire lid speculum was placed. A paracentesis was made at the left hand position. Preservative free lidocaine was injected into the anterior chamber followed by viscoelastic. A clear corneal incision was made in the temporal position. A capsulorrhexis was preformed and the central nuclear and cortical material were removed. The posterior capsule was polished and an Femi 22.5 AU00T0 was placed into the capsular bag. The residual viscoelastic was aspirated and balanced saline solution was injected into the anterior chamber. Moxifloxacin was injected into the anterior chamber. The wound was checked and found to be water tight. The patient tolerated the procedure well without complications. JUAN WONG MD Mar 18, 2023 08:47
[2023-03-18 08:54] VITALS: BP 162/81
[2023-03-18] MEDS ORDERED: acetaZOLAMIDE ER 500 MG CAP (DIAMOX SEQUELS) PO ONE (10:15)
--- NOTE | 2023-03-18 13:24 | Anesthesia-General Post-Op ---
MAC Patient Condition Mental Status/LOC: Same as Preop Cardiovascular: Satisfactory Nausea/Vomiting: Absent Respiratory: Satisfactory Pain: Controlled Complications: Absent Post Op Complications Complications None Follow Up Care/Instructions Patient Instructions None needed. Anesthesiology Discharge Order Discharge Order Patient is doing well, no complaints, stable vital signs, no apparent adverse anesthesia problems. No complications reported per nursing. ABELARDO HERNANDEZ CRNA Mar 18, 2023 13:24
== END 2023-03-18 08:55 | disposition home or self-care (01) ==
LOC: SDC 07:16
PROVIDERS: ATTEND Specialist
DX: H25.9 Unspecified age-related cataract (principal)
CPT/HCPCS: 66984; V2632

== ENCOUNTER 2023-09-20 12:40 | Outpatient (CLI) | payer MEDICARE ==
[~2023-09-20] VITALS: Ht 170.2 cm; Wt 65.9 kg
[2023-09-20] MEDS ORDERED: DIPH-757 PO (13:58)
== END 2023-09-20 14:07 | disposition home or self-care (01) ==
LOC: PREOP 12:40
PROVIDERS: ATTEND Specialist
DX: Z01.818 Encounter for other preprocedural examination (principal)

== ENCOUNTER 2023-09-23 08:46 | Day surgery (SDC) | payer MEDICARE ==
[~2023-09-23] VITALS: Ht 170 cm; Wt 65.9 kg
[~2023-09-23 08:46] MED LIST changes: +DIPH-757 PO
[2023-09-23 09:00] VITALS: BP 140/85
[2023-09-23] MEDS: TETRACAINE 0.5% OPHTH SOLN 5 ML BTL OU PRN ×4 (09:13→09:27)
[2023-09-23] MEDS: PHENYLEPHRINE 10% OPHTH SOLN 5 ML BTL OU PRN ×2 (09:17→09:25)
[2023-09-23] MEDS: TROPICAMIDE 1% OPH SOLN (MYDRIACYL) 15 ML BTL OU PRN ×2 (09:17→09:25)
--- NOTE | 2023-09-23 09:32 | Ophthalmologist Pre-Op Note ---
Pre-Operative Progress Note H&P Reviewed The H&P was reviewed, patient examined and no changes noted. Date H&P Reviewed: Sep 23, 2023 Time H&P Reviewed: 09:31 Pre-Op Dx Secondary Cataract, Right Eye MEME WONG MD Sep 23, 2023 09:32
[2023-09-23 09:40] VITALS: BP 140/85
--- NOTE | 2023-09-23 09:54 | Ophthalmology Operative Report ---
YAG Capsulotomy PREOPERATIVE DIAGNOSIS: Secondary Cataract Left Eye POSTOPERATIVE DIAGNOSIS: Secondary Cataract Left Eye PROCEDURE: YAG Capsulotomy, left eye SURGEON: Juan Wong ANESTHESIA: Topical anesthesia COMPLICATIONS: None ESTIMATED BLOOD LOSS: Minimal DESCRIPTION OF PROCEDURE: After proper informed consent was obtained, the patient's, a 72 female left eye received one drop of Tropicamide and one drop of Tetracaine. The patient was then placed at the YAG laser and using a power of [4.5] millijoules and [23 ] bursts were used to fashion a central capsulotomy. The patient tolerated the procedure well without complications. JUAN WONG MD Sep 23, 2023 09:54
== END 2023-09-23 09:40 | disposition home or self-care (01) ==
LOC: SDC 08:46
PROVIDERS: ATTEND Specialist
DX: H26.40 Unspecified secondary cataract (principal)